=== PATIENT | male | born 1985 | race African-American/Black ===

== ENCOUNTER 2017-12-23 14:36 | Emergency (ER) | payer BC, OTHER ==
[2017-12-23 15:13] VITALS: BMI 34.4
[2017-12-23] MEDS ORDERED: SODIUM CHLORIDE 1,000 ML IV STA ×2 (15:40→17:03)
[2017-12-23 16:13] LABS: BASO % 0.5 % (0-2.0); HEMATOCRIT 44.3 % (35.4-49); HEMOGLOBIN 14.9 GM/dL (11.7-16.9); LYMPH % 37.1 % (8-40); MCH 27.6 pg (25.7-33.7); MCHC 33.7 g/dl (32.0-35.9); MEAN CELL VOLUME 81.8 fl (80-96); MEAN PLT VOLUME 7.4 fl (7.5-11.1); MONO % 16.6 % (3.8-10.2); NEUT % 45.8 % (42.8-82.8); PLATELET COUNT 141 K/MM3 (134-434); RBC 5.41 M/mm3 (4.00-5.60); RDW 15.3 % (11.9-15.9)
--- NOTE | 2017-12-23 16:20 | PDOC ---
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 Patient states took DayQuil this morning secondary to fever 101.7 and after his clinical he decided come to the ER. Patient denies lower abdominal pain, GI disorders, history of gallstones, difficulty urinating, recent travel, recent illness. Patient denies cough or chest pain. Timing/Duration: reports: other (2 days) Severity: reports: moderate Possible Cause: Yes: no prior episodes Associated Symptoms: reports: fever/chills, other (diarrhea and myalgia ) Past History - Travel Traveled outside of the country in the last 30 days: No - Past Medical History Allergies/Adverse Reactions: Allergies Allergy/AdvReac Type Severity Reaction Status Date / Time No Known Allergies Allergy Unverified 12/23/17 15:09 Home Medications: Ambulatory Orders Omeprazole 40 mg PO DAILY 05/13/14 Asthma: Yes COPD: No GI Disorders: Yes (ACID REFLUX) - Immunization History Immunization Up to Date: Yes - Suicide/Smoking/Psychosocial Hx Smoking History: Never smoked Hx Alcohol Use: No Drug/Substance Use Hx: No Substance Use Type: None Patient Lives Alone: No Review of Systems - Review of Systems Able to Perform ROS?: No Constitutional: Yes: Chills, Weakness HEENTM: No: Symptoms Reported Respiratory: No: Symptoms reported Cardiac (ROS): No: Symptoms Reported ABD/GI: Yes: Diarrhea. No: Nausea, Poor Fluid Intake, Vomiting, Abdominal cramping : No: Symptoms Reported Musculoskeletal: Yes: Muscle Pain Integumentary: No: Symptoms Reported Neurological: No: Symptoms reported Endocrine: No: Symptoms Reported *Physical Exam - Vital Signs Last Vital Signs Temp Pulse Resp BP Pulse Ox 101 F H 107 H 18 127/81 99 12/23/17 15:12/23/17 15:12/23/17 15:12/23/17 15:12/23/17 15:09 - Physical Exam General Appearance: Yes: Nourished, Appropriately Dressed. No: Apparent Distress HEENT: positive: EOMI, ZACHARY, TMs Normal, Pharynx Normal. negative: Pale Conjunctivae Neck: positive: Supple Respiratory/Chest: positive: Lungs Clear, Normal Breath Sounds. negative: Respiratory Distress, Accessory Muscle Use Cardiovascular: positive: Regular Rhythm, Tachycardia. negative: Murmur Gastrointestinal/Abdominal: positive: Normal Bowel Sounds, Soft. negative: Distended, Tenderness Integumentary: positive: Normal Color, Warm, Moist Neurologic: positive: Motor Strength 5/5 (ambulatory) ED Treatment Course - LABORATORY CBC & Chemistry Diagram: 12/23/17 15:33 12/23/17 15:33 Medical Decision Making - Medical Decision Making 12/23/17 16:05 Patient complains of myalgia, diarrhea fever and chills since morning. Patient states took DayQuil today mild improvement and after he finished his clinical he came to the ER for further evaluation. Patient arrives tachycardic with no acute findings on exam. Patient ordered for CBC comp, lactic acid influenza IV fluids along with UA. Patient feels that he ate something that was not on Monday night which included chicken and rice home from a food truck 12/23/17 17:03 Laboratory Tests 12/23/17 12/23/17 15:33 15:40 Sodium 135 L Potassium 4.6 Chloride 102 Carbon Dioxide 29 BUN 13 Creatinine 1.3 Random Glucose 92 Lactic Acid 0.5 Total Bilirubin 0.7 AST 27 ALT 39 Alkaline Phosphatase 84 Total Protein 8.4 H Albumin 4.4 12/23/17 17:04 Laboratory Tests 12/23/17 12/23/17 15:33 16:00 WBC 3.0 L Hgb 14.9 Hct 44.3 MPV 7.4 L Neutrophils % (Manual) Pending Monocytes % 16.6 H Urine Ketones Trace H Urine Nitrite Negative Ur Leukocyte Esterase Negative Patient unsure of his baseline WBC. Explained to patient that this may be incidental secondary to symptoms but does require follow-up and repeat CBC. Second liter of normal saline ordered. Patient states feeling better. 12/23/17 17:09 Influenza swab negative patient be sent home with supportive care instructions. *DC/Admit/Observation/Transfer Diagnosis at time of Disposition: Fever, Diarrhea - Discharge Dispostion Disposition: HOME Condition at time of disposition: Improved - Referrals - Patient Instructions Printed Discharge Instructions: DI for Diarrhea and Traveler's Diarrhea -- Adult, DI for Fever (Symptom) -- Adult Additional Instructions: Take ibuprofen 600 mg every 7 hours to control the fever and myalgia. Drink plenty of fluids and eat soft bland foods for the next 48 hours and advance as tolerated. Please also follow up with your doctor regards to today's lab findings. Return to the ED if symptoms worsen. - Post Discharge Activity Forms/Work/School Notes: Back to Work
[2017-12-23 16:23] LABS: URINE APPEARANCE CLEAR; URINE BILIRUBIN NEGATIVE (<2.0 mg/dL); URINE COLOR YELLOW; URINE GLUCOSE (UA) NEGATIVE (NEGATIVE); URINE KETONE TRACE (NEGATIVE); URINE LEUK ESTERASE NEGATIVE (NEGATIVE); URINE NITRITE NEGATIVE (NEGATIVE); URINE PROTEIN NEGATIVE (NEGATIVE); URINE UROBILINOGEN NEGATIVE mg/dL (0.2-1.0)
[2017-12-23 16:47] LABS: ALBUMIN 4.4 g/dl (3.4-5.0); ALK PHOS 84 U/L (45-117); ANION GAP 4 MMOL/L (8-16); BILIRUBIN,TOTAL 0.7 mg/dL (0.2-1); BLOOD UREA NITROGEN 13 mg/dL (7-18); CALCIUM 8.9 mg/dL (8.5-10.1); CHLORIDE 102 mmol/L (98-107); CO2 29 mmol/L (21-32); CREATININE 1.3 mg/dL (0.55-1.3); GLUCOSE,RANDOM 92 mg/dL (74-106); POTASSIUM 4.6 mmol/L (3.5-5.1); SGOT/AST 27 U/L (15-37); SGPT/ALT 39 U/L (13-61); SODIUM 135 mmol/L (136-145); TOT PROT 8.4 g/dl (6.4-8.2)
[2017-12-23 17:30] VITALS: BP 116/70; PULSE 83; TEMP 98.7
[2017-12-23 17:42] LABS: PLATELET ESTIMATE ADEQUATE
== END 2017-12-23 17:21 | disposition home or self-care (01) ==
LOC: JER 14:36
PROC: 3E0337Z Introduction of Electrolytic and Water Balance Substance into Peripheral Vein, Percutaneous Approach (ICD-10-PCS; principal; 2017-12-23)
DX: R19.7 Diarrhea, unspecified (principal)
CPT/HCPCS: 36415; 80053; 81003; 83605; 85025; 87804; 99284-25; J7030